=== PATIENT | female | born 1950 | race Caucasian/White ===

== ENCOUNTER → 2024-12-13 | Outpatient (CLI) | payer MEDICARE, SELFPAY ==
[2024-12-13 19:22] LABS: Barbiturate Urine NEGATIVE (< 200 ng/mL); Benzodiazepine Urine PRESUMPTIVE POSITIVE (< 200 ng/mL); PCP Urine NEGATIVE (< 25 ng/mL); THC Urine NEGATIVE (< 50 ng/mL)
== END | disposition home or self-care (01) ==
PROVIDERS: PCP Nurse Practitioner; Referring Provider Anesthesiology Pain Medicine; Visit Provider Anesthesiology Pain Medicine
DX: F11.20 Opioid dependence, uncomplicated (principal); M47.816 Spondylosis without myelopathy or radiculopathy, lumbar region
CPT/HCPCS: 72100; 80307

== ENCOUNTER → 2024-12-21 | Outpatient (CLI) | payer MEDICARE, SELFPAY ==
--- NOTE | 2024-12-21 17:05 | MRI_ITS ---
PROCEDURE: SPINE LUMBAR (ROUTINE) 12/21/2024 REASON FOR EXAM: RADICULOPATHY TECHNIQUE: SPINE LUMBAR (ROUTINE) COMPARISON: Lumbar spine radiographs dated 12/13/2024 FINDINGS: Vertebral body heights are maintained. There is grade 1 anterolisthesis of L5 on S1 measuring 4 mm. Slightly heterogeneous appearance of the marrow signal. There are few T1/T2 hyperintense lesions in the L1 and L4 vertebral bodies which also demonstrates STIR hyperintensity and which may represent hemangiomas. Spinal cord terminates at the level of low L2. No abnormal cord signal. There is dilation of the common bile duct which measures up to 1.7 cm in diameter. L1-2: No significant disc bulge. Mild facet arthropathy. No significant neural foraminal or spinal canal narrowing. L2-3: No significant disc bulge. Mild facet arthropathy. No significant neural foraminal or spinal canal narrowing. L3-4: Mild disc bulging and moderate facet arthropathy contribute to mild bilateral neural foraminal narrowing. There is mild spinal canal narrowing. L4-5: Moderate disc bulging and facet arthrosis. There is moderate bilateral neural foraminal narrowing, and moderate spinal canal narrowing which measures 7 mm in AP diameter. L5-S1: Mild disc bulging with moderate facet arthrosis. Moderate bilateral neural foraminal narrowing. No significant spinal canal narrowing MRI/Spine Lumbar (Routine) IMPRESSION: 1. [id number] multilevel degenerative changes of the lumbar spine, worst at L4-5 and L5-S1 as detailed above. 2. Common bile duct measures 1.7 cm in diameter. Consider dedicated imaging i f not previously performed. Reading Location: [facility]
== END | disposition home or self-care (01) ==
LOC: MRI 16:41
PROVIDERS: PCP Nurse Practitioner Family; Referring Provider Anesthesiology Pain Medicine; Visit Provider Anesthesiology Pain Medicine
DX: M54.16 Radiculopathy, lumbar region (principal)
CPT/HCPCS: 72148

== ENCOUNTER → 2025-02-14 | Outpatient (CLI) | payer MEDICARE, SELFPAY ==
[2025-02-14 19:59] LABS: Barbiturate Urine NEGATIVE (< 200 ng/mL); Benzodiazepine Urine PRESUMPTIVE POSITIVE (< 200 ng/mL); PCP Urine NEGATIVE (< 25 ng/mL); THC Urine NEGATIVE (< 50 ng/mL)
== END | disposition home or self-care (01) ==
LOC: LAB 17:03
PROVIDERS: PCP Nurse Practitioner Family; Referring Provider Anesthesiology Pain Medicine; Visit Provider Anesthesiology Pain Medicine
DX: F11.20 Opioid dependence, uncomplicated (principal)
CPT/HCPCS: 80307